=== PATIENT | female | born 1975 | race African-American/Black ===

== ENCOUNTER 2019-05-22 17:40 | Emergency (ER) | payer SELFPAY ==
[~2019-05-22] VITALS: Ht 154.9 cm; Wt 61.2 kg
[2019-05-22 18:10] VITALS: BP 156/100
[2019-05-22] MEDS ORDERED: DEXAMETHASONE 4 MG TABLET PO ONE (19:15)
[2019-05-22] MEDS ORDERED: KETOROLAC 30 MG/ML VIAL. IM ONE (19:15)
[2019-05-22] MEDS ORDERED: NAPR-695 PO (19:16)
[2019-05-22] MEDS ORDERED: ORPH100T PO (19:16)
[2019-05-22] MEDS ORDERED: PRED20TA PO (19:16)
--- NOTE | 2019-05-22 19:16 | PHYS DOC ---
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 She states the pain is sharp, constant, and primarily located in the shoulder but radiates down to her right elbow. In addition, she also has parenthesis of her right hand that she describes as tingling. She has mild right cervical paraspinal muscle pain as well. She has taken Aleve and tried icy hot which has not brought relief. She has decreased strength and range of motion in the extremity. She denies any falls and has never injured the shoulder in the past. Review of Systems Review of Systems Constitutional: Denies fever or chills Eyes: Denies redness or eye pain HENT: Denies nasal congestion or sore throat Respiratory: Denies cough or shortness of breath Cardiovascular: Denies chest pain or palpitations GI: Denies abdominal pain, nausea, or vomiting : Denies dysuria or hematuria Musculoskeletal: Right shoulder pain, radiating to right elbow. Integument: Denies rash or skin lesions Neurologic: Denies headache. Reports parasthesia's in right hand. Complete systems were reviewed and found to be within normal limits, except as documented in this note. Current Medications Current Medications Current Medications Medications (Trade) Dose Ordered Sig/Mono Start Time Stop Time Status Last Admin Dose Admin Dexamethasone (Decadron) 10 mg 1X ONCE 05/22/19 19:15 05/22/19 19:16 DC 05/22/19 19:29 10 MG Ketorolac Tromethamine (Toradol 30mg Vial) 30 mg 1X ONCE 05/22/19 19:15 05/22/19 19:16 DC 05/22/19 19:30 30 MG Allergies Allergies Allergies Coded Allergies Type Severity Reaction Last Updated Verified No Known Drug Allergies 02/23/14 No Physical Exam Physical Exam Constitutional: Anxious 43yo female in obvious discomfort HENT: Normocephalic, atraumatic, oropharynx moist Eyes: conjunctiva normal, no discharge Neck: Normal range of motion, right paraspinal tenderness, supple Cardiovascular: Heart rate normal, regular rhythm Lungs & Thorax: Bilateral breath sounds clear to auscultation, no wheezing Abdomen: Soft, no tenderness Skin: Warm, dry, no erythema, no rash Back: No tenderness, no CVA tenderness Extremities:Right shoulder pain. Decreased ROM. Decreased strength. Good right radial pulse (+2). Sensation intact. 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 On exam, the patient had tenderness to palpation on her right shoulder and right elbow and was generally very tense in her entire right extremity. Pulses and sensation were intact in the involved extremity. Patient was administered one shot of ketorolac 30mg and dexamethasone 10mg in the ED and given prescriptions for naproxen, Norflex, and prednisone. Patient advised to follow up with pain management to receive appropriate diagnostic and treatment modalities. Patient stable for discharge with outpatient follow-up with PCP. Discussed findings and plan with patient who acknowledges understanding and agreement. Dragon Disclaimer Dragon Disclaimer This electronic medical record was generated, in whole or in part, using a voice recognition dictation system. Departure Departure Impression: Primary Impression: Paresthesia of arm Disposition: 01 HOME, SELF-CARE Condition: STABLE Referrals: NO PCP (PCP) AMINA PIÑA MD Patient Instructions: Cervical Radiculopathy, [id number], Paresthesia, Pzil-ha-Hjyn Scripts Prednisone (PREDNISONE) 20 Mg Tablet 2 TAB PO DAILY, #8 TAB Start this medication tomorrow, Thursday05/23/19 Prov: SARAH STEWART DO 05/22/19 Orphenadrine Citrate (ORPHENADRINE CITRATE) 100 Mg Tablet.er 1 TAB PO BID, #14 TAB Prov: SARAH STEWART DO 05/22/19 Naproxen (NAPROXEN) 375 Mg Tablet 375 MG PO TID for 7 Days, #21 TAB Prov: SARAH STEWART DO 05/22/19 SARAH STEWART DO May 22, 2019 19:16
== END 2019-05-22 19:34 | disposition home or self-care (01) ==
LOC: ER 17:40
DX: R20.2 Paresthesia of skin (principal); M25.511 Pain in right shoulder; M54.2 Cervicalgia; F12.90 Cannabis use, unspecified, uncomplicated; Z98.890 Other specified postprocedural states
CPT/HCPCS: 96372; 99283; J1885; J8540